=== PATIENT | female | born 1970 | race African-American/Black ===

== ENCOUNTER 2020-07-08 23:37 | Emergency (ER) | payer MEDICAID ==
[~2020-07-08] VITALS: Ht 175.3 cm; Wt 112.5 kg
[2020-07-09 01:38] VITALS: BP 137/76
[2020-07-09] MEDS ORDERED: KETOROLAC TROMETH 60MG/2ML VIAL IM ONE (02:30)
== END 2020-07-09 03:39 | disposition home or self-care (01) ==
LOC: ER 23:40
DX: M54.16 Radiculopathy, lumbar region (principal); M54.42 Lumbago with sciatica, left side; M79.18 Myalgia, other site; Z88.0 Allergy status to penicillin; Z88.1 Allergy status to other antibiotic agents
CPT/HCPCS: 72100; 96372; 99283; J1885